=== PATIENT | male | born 1985 | race Two or more races ===

== ENCOUNTER 2022-07-27 06:50 | Emergency (ER) | payer BC, MEDICARE, OTHER ==
[~2022-07-27] VITALS: Ht 177.8 cm; Wt 85.7 kg
[2022-07-27] MEDS ORDERED: HYDR1CAP25 PO (07:05)
[2022-07-27] MEDS ORDERED: CETI-24 PO (07:05)
[2022-07-27] MEDS ORDERED: ZITHTAB PO (09:36)
[2022-07-27] MEDS ORDERED: MUCI600T31 PO (09:36)
[2022-07-27] MEDS ORDERED: BENZ200C70 PO (09:36)
[2022-07-27 10:03] VITALS: BP 131/70
== END 2022-07-27 10:05 | disposition home or self-care (01) ==
LOC: M ED 06:50
DX: J06.9 Acute upper respiratory infection, unspecified (principal); R05.9 Cough, unspecified; Z20.822 Contact with and (suspected) exposure to COVID-19; J30.9 Allergic rhinitis, unspecified; F41.9 Anxiety disorder, unspecified; Z87.820 Personal history of traumatic brain injury; F17.200 Nicotine dependence, unspecified, uncomplicated; Z88.0 Allergy status to penicillin; Z88.1 Allergy status to other antibiotic agents; Z88.8 Allergy status to other drugs, medicaments and biological substances

== ENCOUNTER 2023-03-14 14:42 | Inpatient (IN) | payer BC, OTHER ==
[~2023-03-14] VITALS: Ht 175.3 cm; Wt 92.0 kg
[~2023-03-14 14:42] MED LIST: BENZ200C70 PO; CETI-24 PO; HYDR1CAP25 PO; MUCI600T31 PO; ZITHTAB PO
[2023-03-14] MEDS ORDERED: METH5SOL10 PO (14:55)
[2023-03-14] MEDS ORDERED: CYCL5TAB PO (15:01)
[2023-03-14 15:45] LABS: ETHYL ALCOHOL (ETHANOL) < 0.003 % (0.000-0.010)
[2023-03-14 15:47] LABS: ACETAMINOPHEN LEVEL < 2.0 UG/ML (10.0-20.0); ALKALINE PHOSPHATASE 119 U/L (46-116); ALT/SGPT 25 U/L (7.0-40); AST/SGOT 28 U/L (<34); BILIRUBIN,DIRECT 0.6 MG/DL (<0.4); BILIRUBIN,TOTAL 1.6 MG/DL (0.3-1.2); BLOOD UREA NITROGEN 22 MG/DL (9-23); CALCIUM LEVEL 10.2 MG/DL (8.5-10.1); CARBON DIOXIDE LEVEL 20 MMOL/L (20-31); CHLORIDE LEVEL 105 MMOL/L (98-107); CREATININE FOR GFR 1.11 MG/DL (0.70-1.30); GLOMERULAR FILTRATION RATE > 60.0 (>60); GLUCOSE, FASTING 88 MG/DL (60-100); SALICYLATE LEVEL < 3.0 MG/DL (<30); SODIUM LEVEL 139 MMOL/L (136-145); TOTAL PROTEIN 7.7 G/DL (5.7-8.2)
[2023-03-14 15:48] LABS: HEMATOCRIT 45.7 % (42.0-52.0); HEMOGLOBIN 16.1 g/dl (13.5-17.5); MEAN CORPUSCULAR HEMOGLOBIN 30.7 pg (27.0-33.0); MEAN CORPUSCULAR HGB CONC 35.2 g/dl (32.0-36.5); MEAN CORPUSCULAR VOLUME 87.2 fl (80.0-96.0); PLATELET COUNT, AUTOMATED 251 10^3/uL (150-450); RED BLOOD COUNT 5.24 10^6/uL (4.30-6.10); WHITE BLOOD COUNT 15.8 10^3/uL (4.0-10.0)
[2023-03-14] MEDS ORDERED: DIPH50CA PO (15:48)
[2023-03-14] MEDS ORDERED: ALBU8.5H INH (15:48)
[2023-03-14] MEDS ORDERED: RITA5TAB PO (15:48)
[2023-03-14] MEDS ORDERED: LIDO1PAD TOP (15:49)
[2023-03-14 15:50] LABS: THYROID STIMULATING HORMONE 0.434 uIU/ML (0.55-4.78)
[2023-03-14] MEDS ORDERED: HOME MED LIST COMPLETE! XX SCH (15:50)
[2023-03-14 18:47] LABS: AMPHETAMINES LEVEL URINE NEGATIVE (NEGATIVE); BARBITURATES URINE NEGATIVE (NEGATIVE); BENZODIAZEPINES URINE NEGATIVE (NEGATIVE); COCAINE METABOLITE URINE NEGATIVE (NEGATIVE)
[2023-03-14 18:48] LABS: METHADONE URINE NEGATIVE (NEGATIVE); OPIATES URINE NEGATIVE (NEGATIVE); PHENCYCLIDINE URINE NEGATIVE (NEGATIVE)
[2023-03-14 18:49] LABS: CANNABINOIDS URINE POSITIVE (NEGATIVE)
[2023-03-14] MEDS ORDERED: LORazepam 1 MG TAB PO ONE ×2 (19:30→20:15)
[2023-03-15] MEDS ORDERED: MOM 30ML SUSPENSION UDC PO PRN (00:10)
[2023-03-15] MEDS ORDERED: ACETAMINOPHEN TAB 650MG DOSE (2X325MG) PO PRN (00:10)
[2023-03-15] MEDS ORDERED: MAALOX 30 ML SUSP *UDC PO PRN (00:10)
[2023-03-15 06:54] VITALS: BP 144/74
[2023-03-15] MEDS ORDERED: NICOTINE 21MG/24HR 1 EA TRANSDERMAL TD SCH (09:00)
[2023-03-15] MEDS ORDERED: ALBUTEROL 90 MCG/ACT 8GM HFA INHALER INH PRN (15:55)
[2023-03-15] MEDS ORDERED: LIDOCAINE 5% (LIDODERM) PATCH TD ONE (15:55)
[2023-03-15] MEDS: CYCLOBENZAPRINE 5MG TABLET PO PRN (16:16)
[2023-03-15 18:00] VITALS: BP 135/65
[2023-03-15] MEDS: traZODone 50 MG TAB PO PRN (21:14)
[2023-03-16 06:12] VITALS: BP_SYST 106; BP_SYST 130; BP_DIAS 58; BP_DIAS 79
[2023-03-16] MEDS: NICOTINE 14 MG/24 HR TRANSDERMAL TD SCH ×2 (08:19→16:13)
[2023-03-16] MEDS: SERTRALINE HCL 25 MG TABLET PO SCH (08:21)
[2023-03-16] MEDS: CYCLOBENZAPRINE 5MG TABLET PO PRN ×2 (08:21→20:41)
[2023-03-16] MEDS: OLANZapine ORAL DISINTEGRATING TAB 5MG PO PRN ×2 (08:21→20:40)
[2023-03-16 16:25] VITALS: BP 134/85
[2023-03-16] MEDS: traZODone 50 MG TAB PO PRN (20:41)
[2023-03-16] MEDS ORDERED: diphenhydrAMINE 25MG CAP PO ONE (23:15)
[2023-03-17 06:23] VITALS: BP 126/7
[2023-03-17] MEDS: SERTRALINE HCL 25 MG TABLET PO SCH (08:10)
[2023-03-17] MEDS: OLANZapine ORAL DISINTEGRATING TAB 5MG PO PRN ×2 (08:11→19:07)
[2023-03-17] MEDS: NICOTINE 14 MG/24 HR TRANSDERMAL TD SCH (08:13)
[2023-03-17 16:14] VITALS: BP 150/84
[2023-03-17] MEDS: CYCLOBENZAPRINE 5MG TABLET PO PRN (19:07)
[2023-03-17] MEDS ORDERED: OLANZapine 5 MG TAB PO SCH (21:00)
[2023-03-18 06:46] VITALS: BP 140/67
[2023-03-18] MEDS: NICOTINE 14 MG/24 HR TRANSDERMAL TD SCH (08:26)
[2023-03-18] MEDS: OLANZapine ORAL DISINTEGRATING TAB 5MG PO PRN (08:26)
[2023-03-18] MEDS: SERTRALINE HCL 25 MG TABLET PO SCH (08:26)
[2023-03-18] MEDS ORDERED: SERT25TA21 PO (09:01)
[2023-03-18] MEDS ORDERED: TRAZ-252 PO (09:01)
[2023-03-18] MEDS ORDERED: OLAN1TAB16 PO (09:01)
== END 2023-03-18 13:33 | disposition home or self-care (01) | DRG 881 ==
LOC: M ED 14:42 → M ED INP 03-15 00:06 → M PSY 03-15 00:56
PROVIDERS: ADMIT Psychiatry & Neurology Psychiatry; ATTEND Psychiatry & Neurology Psychiatry
DX: F32.9 Major depressive disorder, single episode, unspecified (principal); R45.851 Suicidal ideations; F43.20 Adjustment disorder, unspecified; F12.90 Cannabis use, unspecified, uncomplicated; J45.909 Unspecified asthma, uncomplicated; F19.14 Other psychoactive substance abuse with psychoactive substance-induced mood disorder; Z91.82 Personal history of military deployment; Z87.820 Personal history of traumatic brain injury; Z62.811 Personal history of psychological abuse in childhood; Z62.810 Personal history of physical and sexual abuse in childhood; Z56.0 Unemployment, unspecified; Z79.899 Other long term (current) drug therapy; Z88.0 Allergy status to penicillin; Z88.1 Allergy status to other antibiotic agents; Z88.8 Allergy status to other drugs, medicaments and biological substances; Z87.891 Personal history of nicotine dependence; Z81.8 Family history of other mental and behavioral disorders

== ENCOUNTER 2023-06-03 17:25 | Inpatient (IN) | payer OTHER ==
[~2023-06-03] VITALS: Ht 177.8 cm; Wt 88.7 kg
[~2023-06-03 17:25] MED LIST changes: +ALBU8.5H INH; +CYCL5TAB PO; +DIPH50CA PO; +LIDO1PAD TOP; +METH5SOL10 PO; +OLAN1TAB16 PO; +RITA5TAB PO; +SERT25TA21 PO; +TRAZ-252 PO
[2023-06-03 18:40] LABS: HEMATOCRIT 44.2 % (42.0-52.0); HEMOGLOBIN 15.5 g/dl (13.5-17.5); MEAN CORPUSCULAR HEMOGLOBIN 31.1 pg (27.0-33.0); MEAN CORPUSCULAR HGB CONC 35.1 g/dl (32.0-36.5); MEAN CORPUSCULAR VOLUME 88.8 fl (80.0-96.0); PLATELET COUNT, AUTOMATED 223 10^3/uL (150-450); RED BLOOD COUNT 4.98 10^6/uL (4.30-6.10); WHITE BLOOD COUNT 6.6 10^3/uL (4.0-10.0)
[2023-06-03 18:48] LABS: ETHYL ALCOHOL (ETHANOL) 0.004 % (0.000-0.010)
[2023-06-03 18:50] LABS: ACETAMINOPHEN LEVEL < 2.0 UG/ML (10.0-20.0); ALBUMIN 3.9 G/DL (3.2-5.2); ALKALINE PHOSPHATASE 115 U/L (46-116); ALT/SGPT 68 U/L (7.0-40); AST/SGOT 37 U/L (<34); BILIRUBIN,DIRECT 0.1 MG/DL (<0.4); BILIRUBIN,TOTAL 0.4 MG/DL (0.3-1.2); BLOOD UREA NITROGEN 15 MG/DL (9-23); CALCIUM LEVEL 8.8 MG/DL (8.5-10.1); CARBON DIOXIDE LEVEL 24 MMOL/L (20-31); CHLORIDE LEVEL 106 MMOL/L (98-107); CREATININE FOR GFR 0.94 MG/DL (0.70-1.30); GLOMERULAR FILTRATION RATE > 60.0 (>60); GLUCOSE, FASTING 161 MG/DL (60-100); POTASSIUM SERUM 3.9 MMOL/L (3.5-5.1); SALICYLATE LEVEL < 3.0 MG/DL (<30); SODIUM LEVEL 140 MMOL/L (136-145); TOTAL PROTEIN 6.8 G/DL (5.7-8.2)
[2023-06-03 18:52] LABS: THYROID STIMULATING HORMONE 0.914 uIU/ML (0.55-4.78)
[2023-06-03 19:18] LABS: AMPHETAMINES LEVEL URINE NEGATIVE (NEGATIVE); BARBITURATES URINE NEGATIVE (NEGATIVE); BENZODIAZEPINES URINE NEGATIVE (NEGATIVE); COCAINE METABOLITE URINE NEGATIVE (NEGATIVE); METHADONE URINE NEGATIVE (NEGATIVE); OPIATES URINE NEGATIVE (NEGATIVE); PHENCYCLIDINE URINE NEGATIVE (NEGATIVE)
[2023-06-03 19:20] LABS: CANNABINOIDS URINE POSITIVE (NEGATIVE)
[2023-06-03] MEDS ORDERED: MOM 30ML SUSPENSION UDC PO PRN (22:40)
[2023-06-03] MEDS ORDERED: traZODone 50 MG TAB PO PRN (22:40)
[2023-06-03] MEDS ORDERED: ACETAMINOPHEN TAB 650MG DOSE (2X325MG) PO PRN (22:40)
[2023-06-03] MEDS ORDERED: IBUPROFEN 400MG TAB PO PRN (22:40)
[2023-06-03] MEDS ORDERED: diphenhydrAMINE 25MG CAP PO PRN (22:40)
[2023-06-03] MEDS ORDERED: MAALOX 30 ML SUSP *UDC PO PRN (22:40)
[2023-06-03 23:20] VITALS: BP 130/76; TEMP 97.7; O2SAT 98
[2023-06-04 06:12] VITALS: BP 99/63; TEMP 97.8; O2SAT 97
[2023-06-04] MEDS ORDERED: CETI-24 PO (07:02)
[2023-06-04] MEDS ORDERED: FLON1SPR NARES (07:02)
[2023-06-04] MEDS ORDERED: OLAN1TAB20 PO (07:02)
[2023-06-04] MEDS ORDERED: SERT50TA29 PO (07:02)
[2023-06-04] MEDS ORDERED: FAMO20TA PO (07:02)
[2023-06-04] MEDS ORDERED: HOME MED LIST COMPLETE! XX SCH (07:05)
[2023-06-04] MEDS: NICOTINE 14 MG/24 HR TRANSDERMAL TD SCH (11:45)
[2023-06-04] MEDS: DULoxetine 30MG CAPSULE (CYMBALTA) PO SCH (12:20)
[2023-06-04] MEDS: PROPRANOLOL 20 MG TAB PO SCH ×2 (12:22→20:11)
[2023-06-04 16:33] VITALS: BP 129/67; TEMP 97.2; O2SAT 100
[2023-06-04] MEDS ORDERED: LOPERAMIDE 2 MG CAPLET PO PRN (18:20)
[2023-06-04] MEDS ORDERED: LOPERAMIDE 2 MG CAPLET PO ONE (19:00)
[2023-06-04] MEDS: OLANZapine 5 MG TAB PO SCH (20:11)
[2023-06-05 06:38] VITALS: BP 126/76; TEMP 97.7; O2SAT 97
[2023-06-05 07:24] LABS: CHOLESTEROL RISK RATIO 4.81 (<5); HDL CHOLESTEROL 42.8 MG/DL (>40); LDL CHOLESTEROL 141.6 MG/DL (<100); NON-HDL-C 163.2 MG/DL
[2023-06-05] MEDS: PROPRANOLOL 20 MG TAB PO SCH ×2 (08:07→20:10)
[2023-06-05] MEDS: DULoxetine 30MG CAPSULE (CYMBALTA) PO SCH (08:07)
[2023-06-05] MEDS: NICOTINE 14 MG/24 HR TRANSDERMAL TD SCH (08:08)
[2023-06-05] MEDS ORDERED: LIDOCAINE 5% (LIDODERM) PATCH TD PRN (09:30)
[2023-06-05] MEDS: ARIPiprazole 2 MG TAB PO SCH (16:03)
[2023-06-05 16:12] VITALS: BP 135/84; TEMP 97.6; O2SAT 100
[2023-06-05 20:07] VITALS: BP 138/98
[2023-06-05] MEDS: OLANZapine 5 MG TAB PO SCH (20:10)
[2023-06-05] MEDS: CYCLOBENZAPRINE 5MG TABLET PO PRN (20:10)
[2023-06-06 06:32] VITALS: BP 121/71; TEMP 98; O2SAT 95
[2023-06-06] MEDS: ARIPiprazole 2 MG TAB PO SCH (08:21)
[2023-06-06] MEDS: DULoxetine 30MG CAPSULE (CYMBALTA) PO SCH (08:21)
[2023-06-06] MEDS: PROPRANOLOL 20 MG TAB PO SCH ×2 (08:22→20:39)
[2023-06-06] MEDS: NICOTINE 14 MG/24 HR TRANSDERMAL TD SCH (09:51)
[2023-06-06] MEDS ORDERED: traZODone 100 MG TAB PO PRN (12:05)
[2023-06-06 16:11] VITALS: BP 126/61; TEMP 97.3; O2SAT 98
[2023-06-06] MEDS: CYCLOBENZAPRINE 5MG TABLET PO PRN (20:38)
[2023-06-06] MEDS: OLANZapine 5 MG TAB PO SCH (20:38)
[2023-06-07 06:16] VITALS: BP 125/62; TEMP 97; O2SAT 96
[2023-06-07 08:23] VITALS: BP 145/94
[2023-06-07] MEDS: CYCLOBENZAPRINE 5MG TABLET PO PRN (08:23)
[2023-06-07] MEDS: ARIPiprazole 2 MG TAB PO SCH (08:23)
[2023-06-07] MEDS: DULoxetine 30MG CAPSULE (CYMBALTA) PO SCH (08:23)
[2023-06-07] MEDS: PROPRANOLOL 20 MG TAB PO SCH (08:23)
[2023-06-07] MEDS: NICOTINE 14 MG/24 HR TRANSDERMAL TD SCH (08:24)
[2023-06-07] MEDS ORDERED: ABIL1TAB13 PO (10:35)
[2023-06-07] MEDS ORDERED: CYMB1CAP5 PO (10:35)
[2023-06-07] MEDS ORDERED: TRAZ-257 PO (10:35)
[2023-06-07] MEDS ORDERED: PROP20TA PO (10:35)
[2023-06-07] MEDS ORDERED: OLAN1TAB16 PO (10:35)
[2023-06-07] MEDS ORDERED: LIDO5TD TD (10:35)
[2023-06-07] MEDS ORDERED: NICO14PA TD (10:35)
[2023-06-07] MEDS ORDERED: CYCL5TAB PO (10:35)
== END 2023-06-07 14:21 | disposition home or self-care (01) | DRG 885 ==
LOC: M ED 17:25 → M ED INP 22:36 → M PSY 23:04
PROVIDERS: ADMIT Student in an Organized Health Care Education/Training Program; ATTEND Student in an Organized Health Care Education/Training Program
DX: F33.1 Major depressive disorder, recurrent, moderate (principal); R45.851 Suicidal ideations; K52.1 Toxic gastroenteritis and colitis; F43.10 Post-traumatic stress disorder, unspecified; F60.89 Other specific personality disorders; J45.20 Mild intermittent asthma, uncomplicated; M54.50 Low back pain, unspecified; G89.29 Other chronic pain; R74.01 Elevation of levels of liver transaminase levels; M25.511 Pain in right shoulder; T43.215A Adverse effect of selective serotonin and norepinephrine reuptake inhibitors, initial encounter; F12.10 Cannabis abuse, uncomplicated; F17.210 Nicotine dependence, cigarettes, uncomplicated; Z91.82 Personal history of military deployment; Z87.820 Personal history of traumatic brain injury; Z63.0 Problems in relationship with spouse or partner; Z91.51 Personal history of suicidal behavior; Z56.0 Unemployment, unspecified; Z79.899 Other long term (current) drug therapy; Z88.0 Allergy status to penicillin; Z88.1 Allergy status to other antibiotic agents; Z88.8 Allergy status to other drugs, medicaments and biological substances